=== PATIENT | male | born 1985 | race Two or more races ===

== ENCOUNTER 2023-02-16 14:24 | Emergency (ER) | payer OTHER ==
[~2023-02-16] VITALS: Ht 177.8 cm; Wt 75.0 kg
[2023-02-16 17:50] VITALS: BP 145/81
== END 2023-02-16 15:40 | disposition home or self-care (01) ==
LOC: ER 14:24 → EDBD 14:24 → ER 15:40
DX: L98.8 Other specified disorders of the skin and subcutaneous tissue; Z98.52 Vasectomy status
CPT/HCPCS: 71045